=== PATIENT | male | born 1970 | race Caucasian/White ===

== ENCOUNTER 2024-12-15 07:42 | Emergency (ER) | payer OTHER ==
[~2024-12-15] VITALS: Ht 167.6 cm; Wt 76.4 kg
[2024-12-15 08:25] LABS: GLUCOMETER DEV NAME(LOC) ER.7; GLUCOSE,POINT OF CARE 222 MG/DL (70-110)
[2024-12-15] MEDS ORDERED: LIDOCAINE 1% 10 ML VIAL ONE (09:11)
[2024-12-15] MEDS ORDERED: LIDOCAINE 1% 20 ML VIAL SQ ONE (09:15)
[2024-12-15] MEDS: LIDOCAINE 1% 10 ML VIAL SQ ONE (09:15)
[2024-12-15] MEDS: PERTUSS(ACELL),DIPH,TET/PF 0.5 ML SYRINGE [ADULT] IM. ONE (09:20)
[2024-12-15] MEDS: CIPROFLOXACIN HCL 250 MG TABLET PO ONE (09:47)
[2024-12-15] MEDS: CEPHALEXIN MONOHYDRATE 500 MG CAPSULE PO ONE (09:48)
[2024-12-15] MEDS ORDERED: CIPR-515 PO (10:07)
[2024-12-15] MEDS ORDERED: CEPH-558 PO (10:07)
[2024-12-15] MEDS ORDERED: PERCT PO (10:08)
[2024-12-15 10:53] VITALS: BP 118/72; PULSE 82; RESP 16; TEMP 98.405312; O2SAT 100
== END 2024-12-15 10:59 | disposition home or self-care (01) ==
LOC: EMS 07:42
DX: S91.331A Puncture wound without foreign body, right foot, initial encounter (principal); L08.9 Local infection of the skin and subcutaneous tissue, unspecified; E11.9 Type 2 diabetes mellitus without complications; I10 Essential (primary) hypertension; E78.00 Pure hypercholesterolemia, unspecified; Z23 Encounter for immunization; X58.XXXA Exposure to other specified factors, initial encounter; Y93.89 Activity, other specified; Y92.89 Other specified places as the place of occurrence of the external cause; Y99.8 Other external cause status
CPT/HCPCS: 99283; 82962; 73630; 90715; 90471; J3490

== ENCOUNTER 2024-12-17 07:33 | Emergency (ER) | payer OTHER ==
[~2024-12-17] VITALS: Ht 170.2 cm; Wt 79.5 kg
[~2024-12-17 07:33] MED LIST: CEPH-558 PO; CIPR-515 PO; PERCT PO
[2024-12-17 07:51] VITALS: TEMP 97.9
[2024-12-17] MEDS ORDERED: METF-1211 PO (08:01)
[2024-12-17 08:46] VITALS: BP 118/70; PULSE 72; RESP 18; O2SAT 99
== END 2024-12-17 08:48 | disposition home or self-care (01) ==
LOC: EMS 07:33
DX: S91.331A Puncture wound without foreign body, right foot, initial encounter (principal); E11.9 Type 2 diabetes mellitus without complications; E78.00 Pure hypercholesterolemia, unspecified; I10 Essential (primary) hypertension; Z79.2 Long term (current) use of antibiotics; Z79.899 Other long term (current) drug therapy; W26.8XXA Contact with other sharp object(s), not elsewhere classified, initial encounter; Y93.89 Activity, other specified; Y92.89 Other specified places as the place of occurrence of the external cause; Y99.8 Other external cause status
CPT/HCPCS: 82962; 99283